=== PATIENT | male | born 1995 | race African-American/Black ===

== ENCOUNTER 2017-01-17 19:11 | Emergency (ER) | payer MEDICAID, OTHER ==
[~2017-01-17] VITALS: Ht 182.9 cm; Wt 68.0 kg
[~2017-01-17 19:11] MED LIST: DEXT15SY3 PO; TNFMISC
[2017-01-17 20:35] VITALS: BP 107/70
== END 2017-01-17 21:02 | disposition home or self-care (01) ==
LOC: EMS 19:13
DX: S62.001A Unspecified fracture of navicular [scaphoid] bone of right wrist, initial encounter for closed fracture (principal); S56.011A Strain of flexor muscle, fascia and tendon of right thumb at forearm level, initial encounter; J40 Bronchitis, not specified as acute or chronic; W18.39XA Other fall on same level, initial encounter; Y93.02 Activity, running; Y92.89 Other specified places as the place of occurrence of the external cause; Y99.8 Other external cause status
CPT/HCPCS: 99284